=== PATIENT | female | born 2000 | race African-American/Black ===

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

== ENCOUNTER 2020-06-21 19:05 | Emergency (ER) | payer MEDICAID, OTHER ==
[~2020-06-21] VITALS: Ht 167.6 cm; Wt 52.0 kg
[~2020-06-21 19:05] MED LIST: PNV11TAB PO
[2020-06-21 19:13] VITALS: BP 98/49
[2020-06-21 20:56] LABS: EOSINOPHILS % 2.1 % (0.0-5.0); HEMOGLOBIN. 10.5 g/dL (12.0-16.0); LYMPHOCYTES % 27.6 % (20.0-50.0); MEAN CORPUSCULAR HEMOGLOBIN 27.6 pg (28.0-32.0); MEAN CORPUSCULAR VOLUME 84.1 fL (81.0-99.0); MEAN PLATELET VOLUME 8.5 fl (7.4-10.4); MONOCYTES % 5.3 % (2.0-8.0); PLATELET 412 x1000/uL (130-400); RED CELL DISTRIBUTION WIDTH 14.1 % (11.6-14.6)
[2020-06-21 20:58] LABS: CLARITY URINE CLEAR (CLEAR); COLOR URINE YELLOW (YELLOW); KETONES URINE NEGATIVE (NEGATIVE); LEUKOCYTE ESTERASE URINE 1+ (NEGATIVE); NITRITE URINE POSITIVE (NEGATIVE); OCCULT BLOOD URINE NEGATIVE (NEGATIVE); PROTEIN URINE NEGATIVE (NEGATIVE); SPECIFIC GRAVITY URINE 1.015 (1.005-1.030); UROBILINOGEN URINE 0.2 E.U./dL (0.2-1.0)
[2020-06-21 21:07] LABS: CHLORIDE 109 mEq/L (98-107)
[2020-06-21 21:09] LABS: HCG SCREEN NEGATIVE
== END 2020-06-21 23:43 | disposition left against medical advice (07) ==
LOC: ER 19:05
DX: R82.71 Bacteriuria (principal); Z98.890 Other specified postprocedural states
CPT/HCPCS: 36415; 80048; 81003; 81025; 84703; 85025; 99283